=== PATIENT | male | born 1955 | race Asian ===

== ENCOUNTER 2020-05-27 07:26 | Inpatient (IN) | payer MEDICARE, OTHER ==
[~2020-05-27] VITALS: Ht 162.6 cm; Wt 69.9 kg
[~2020-05-27 07:26] MED LIST: ATOR40TA28 PO; CARV3 PO; CEPH-582 PO; CHOL100018 PO; CLIN300C3 PO; CLOP75TA3 PO; GABA-1216 PO; HYDR-4069 PO; INSLAN SQ; INSNOV SQ; METF-960 PO; METO-296 PO
[2020-05-27] MEDS ORDERED: PIPERACILLIN/TAZO 3.375 GM/D5W 50 ML IV ONE (09:00)
[2020-05-27] MEDS ORDERED: VANCOMYCIN HCL 1 GM/D5% WATER 200 ML IV ONE (09:00)
[2020-05-27 09:10] LABS: BASOPHILS % (AUTO) 0.8 % (0.0-2.0); HEMATOCRIT 32.6 % (41-53); LYMPHOCYTES # (AUTO) 1.3 K/uL (1.0-4.8); LYMPHOCYTES % (AUTO) 19.6 % (22.0-44.0); MEAN CORPUSCULAR HEMOGLOBIN 28.9 pg (26.0-34.0); MEAN CORPUSCULAR HGB CONC 33.7 G/dL (31.0-37.0); MEAN CORPUSCULAR VOLUME 86 fL (80-100); MONOCYTES # (AUTO) 0.5 K/uL (0.1-1.0); MONOCYTES % (AUTO) 8.4 % (2.0-9.0); NEUTROPHILS # (AUTO) 4.2 K/uL (1.8-7.7); NEUTROPHILS % (AUTO) 66.2 % (40.0-70.0); PLATELET COUNT (AUTO) 322 K/uL (150-450); RED BLOOD CELL COUNT(AUTO) 3.81 MIL/uL (4.50-5.90); RED CELL DISTRIBUTION WIDTH 14.7 % (11.5-14.5)
[2020-05-27 09:21] LABS: ANION GAP 7 mmol/L (8-16); CARBON DIOXIDE 27 mmol/L (22-29); CHLORIDE 105 mmol/L (98-107); CREATININE 1.12 mg/dL (0.60-1.30); GLOMERULAR FILTR. RATE CALC > 60 mL/min (>60); GLUCOSE,RANDOM 141 mg/dL (70-110); SODIUM SERUM 139 mmol/L (136-145); UREA NITROGEN, BLOOD 15 mg/dL (7-18)
[2020-05-27 09:23] LABS: C-REACTIVE PROTEIN QUANT 0.67 mg/dL (0.00-0.30)
[2020-05-27 10:12] LABS: ERYTHROCYTE SEDIMENTATION RATE 75 MM/HR (0-15)
[2020-05-27] MEDS ORDERED: ACETAMINOPHEN 325 MG TABLET PO PRN ×2 (10:30→15:00)
[2020-05-27] MEDS ORDERED: ONDANSETRON HCL 4 MG/2 ML VIAL IVP PRN (10:30)
[2020-05-27 10:54] LABS: GLUCOSE,POINT OF CARE 136 MG/DL (70-110)
[2020-05-27] MEDS ORDERED: MAGNESIUM HYDROXIDE SUSPENSION 30 ML UDCUP PO PRN (15:00)
[2020-05-27] MEDS ORDERED: HYDROCODONE/ACETAMINOPHEN 10-325 MG TABLET PO PRN (15:00)
[2020-05-27] MEDS ORDERED: BISACODYL 10 MG RECTAL RECTAL SUPPOSITORY PR PRN (15:00)
[2020-05-27] MEDS ORDERED: GADOBUTROL 1 MMOL/ML 10 ML VIAL IVP ONE (15:48)
[2020-05-27] MEDS: CHOLECALCIFEROL (VIT D3) 1,000 UNITS [25 MCG] TABLET PO SCH (15:58)
[2020-05-27] MEDS: GABAPENTIN 100 MG CAPSULE PO SCH ×2 (16:00→21:02)
[2020-05-27] MEDS: METOCLOPRAMIDE HCL 10 MG TABLET PO SCH ×2 (16:00→21:02)
[2020-05-27 17:30] VITALS: BP 148/72
[2020-05-27] MEDS: MetFORMIN HCL 500 MG TABLET PO SCH (17:30)
[2020-05-27 18:05] VITALS: BP 172/87
[2020-05-27] MEDS: HEPARIN SODIUM,PORCINE 5,000 UNITS/ML VIAL SQ SCH ×2 (18:25→23:53)
[2020-05-27] MEDS: HYDROCODONE/ACETAMINOPHEN 5-325 MG TABLET PO PRN (19:59)
[2020-05-27 20:04] VITALS: BP 146/77
[2020-05-27 20:50] VITALS: BP 149/87
[2020-05-27] MEDS: DOCUSATE SODIUM 100 MG CAPSULE PO SCH (21:03)
[2020-05-27] MEDS: CARVEDILOL 3.125 MG TABLET PO SCH (21:03)
[2020-05-27] MEDS: ATORVASTATIN CALCIUM 40 MG TABLET PO SCH (21:03)
[2020-05-27] MEDS ORDERED: DEXTROSE 50%-WATER 25 GM/50 ML SYG IVP PRN (21:45)
[2020-05-27] MEDS ORDERED: GLUCAGON,HUMAN RECOMBINANT 1 MG VIAL IM PRN (21:45)
[2020-05-27] MEDS ORDERED: INSULIN LISPRO 100 UNITS/ML SQ PRN (21:45)
[2020-05-27] MEDS: INSULIN GLARGINE,HUM.REC.ANLOG 100 UNITS/ML SQ SCH (21:59)
[2020-05-27 22:00] LABS: GLUCOMETER DEV NAME(LOC) 6N.1; GLUCOSE,POINT OF CARE 147 MG/DL (70-110)
[2020-05-27] MEDS: INSULIN LISPRO 100 UNITS/ML SQ PRN (22:01)
[2020-05-27] MEDS ORDERED: PNEUMOCOCCAL VACCINE POLYVALENT 0.5 ML VIAL [PPSV23] IM ONE (23:45)
[2020-05-28] MEDS: HYDROCODONE/ACETAMINOPHEN 5-325 MG TABLET PO PRN ×3 (00:21→20:55)
[2020-05-28 00:22] VITALS: BP 109/65
[2020-05-28] MEDS ORDERED: RINGERS SOLUTION,LACTATED 1,000 ML IV ONE (06:30)
[2020-05-28] MEDS ORDERED: LIDOCAINE/PF 1% 30 ML VIAL ONE (06:39)
[2020-05-28] MEDS ORDERED: SODIUM CL IRRIG SOLN BAG 3,000 ML IRRIG ONE (06:39)
[2020-05-28] MEDS ORDERED: BUPIVACAINE HCL/PF 0.25% 30 ML VIAL ONE (06:39)
[2020-05-28] MEDS ORDERED: BACITRACIN 50,000 UNITS/VIAL ONE (06:40)
[2020-05-28] MEDS: HEPARIN SODIUM,PORCINE 5,000 UNITS/ML VIAL SQ SCH ×3 (08:00→23:30)
[2020-05-28] MEDS: OXYGEN THERAPY IH SCH (08:00)
[2020-05-28 10:12] VITALS: BP 140/68
[2020-05-28] MEDS: DOCUSATE SODIUM 100 MG CAPSULE PO SCH ×2 (11:09→20:58)
[2020-05-28] MEDS: PANTOPRAZOLE SODIUM 40 MG DR TABLET PO SCH (11:10)
[2020-05-28] MEDS: CARVEDILOL 3.125 MG TABLET PO SCH ×2 (11:10→20:58)
[2020-05-28] MEDS: GABAPENTIN 100 MG CAPSULE PO SCH ×3 (11:10→20:58)
[2020-05-28] MEDS: METOCLOPRAMIDE HCL 10 MG TABLET PO SCH ×3 (11:10→20:58)
[2020-05-28] MEDS: MetFORMIN HCL 500 MG TABLET PO SCH ×2 (11:10→17:26)
[2020-05-28] MEDS: CHOLECALCIFEROL (VIT D3) 1,000 UNITS [25 MCG] TABLET PO SCH ×2 (11:10→20:59)
[2020-05-28] MEDS: CLOPIDOGREL BISULFATE 75 MG TABLET PO SCH (11:10)
[2020-05-28 11:11] VITALS: BP 134/68
[2020-05-28] MEDS: MORPHINE SULFATE 2 MG/ML SYRINGE IVP PRN ×3 (12:33→23:08)
[2020-05-28] MEDS: INSULIN LISPRO 100 UNITS/ML SQ PRN (12:40)
[2020-05-28 13:45] LABS: GLUCOMETER DEV NAME(LOC) 6N.1; GLUCOSE,POINT OF CARE 96 MG/DL (70-110)
[2020-05-28 13:46] LABS: GLUCOMETER DEV NAME(LOC) 6N.1; GLUCOSE,POINT OF CARE 142 MG/DL (70-110)
[2020-05-28 14:57] VITALS: BP 150/83
[2020-05-28 18:09] LABS: GLUCOMETER DEV NAME(LOC) 6N.1; GLUCOSE,POINT OF CARE 80 MG/DL (70-110)
[2020-05-28 20:07] VITALS: BP 136/80
[2020-05-28] MEDS: ATORVASTATIN CALCIUM 40 MG TABLET PO SCH (21:00)
[2020-05-28] MEDS: INSULIN GLARGINE,HUM.REC.ANLOG 100 UNITS/ML SQ SCH (21:05)
[2020-05-28 21:32] LABS: GLUCOMETER DEV NAME(LOC) 6N.1; GLUCOSE,POINT OF CARE 135 MG/DL (70-110)
[2020-05-28] MEDS: ZOLPIDEM TARTRATE 5 MG TABLET PO PRN (23:09)
[2020-05-28 23:15] VITALS: BP 125/86
[2020-05-29] MEDS: MORPHINE SULFATE 2 MG/ML SYRINGE IVP PRN ×4 (03:15→21:42)
[2020-05-29 03:18] VITALS: BP 132/78
[2020-05-29] MEDS ORDERED: MIDAZOLAM HCL 2 MG/2 ML VIAL IVP ONE (05:14)
[2020-05-29] MEDS ORDERED: PROPOFOL 1% 20 ML VIAL IVP ONE (05:14)
[2020-05-29] MEDS ORDERED: LIDOCAINE/PF 2% 5 ML SYRINGE IVP ONE (05:14)
[2020-05-29] MEDS ORDERED: ONDANSETRON HCL 4 MG/2 ML VIAL IVP ONE (05:14)
[2020-05-29] MEDS ORDERED: FentaNYL CITRATE-PF 100 MCG/2 ML VIAL IVP ONE (05:14)
[2020-05-29 05:20] LABS: GLUCOMETER DEV NAME(LOC) 6N.1; GLUCOSE,POINT OF CARE 108 MG/DL (70-110)
[2020-05-29] MEDS: MetFORMIN HCL 500 MG TABLET PO SCH ×2 (07:51→17:39)
[2020-05-29 07:52] VITALS: BP 143/88
[2020-05-29] MEDS: HYDROCODONE/ACETAMINOPHEN 5-325 MG TABLET PO PRN ×2 (07:52→20:16)
[2020-05-29] MEDS: HEPARIN SODIUM,PORCINE 5,000 UNITS/ML VIAL SQ SCH ×3 (07:52→23:26)
[2020-05-29] MEDS: OXYGEN THERAPY IH SCH (07:54)
[2020-05-29] MEDS: CHOLECALCIFEROL (VIT D3) 1,000 UNITS [25 MCG] TABLET PO SCH ×2 (08:00→20:12)
[2020-05-29] MEDS: CLOPIDOGREL BISULFATE 75 MG TABLET PO SCH (08:00)
[2020-05-29] MEDS: METOCLOPRAMIDE HCL 10 MG TABLET PO SCH ×3 (08:00→20:12)
[2020-05-29] MEDS: DOCUSATE SODIUM 100 MG CAPSULE PO SCH ×2 (08:00→20:11)
[2020-05-29] MEDS: GABAPENTIN 100 MG CAPSULE PO SCH ×3 (08:00→20:12)
[2020-05-29] MEDS: PANTOPRAZOLE SODIUM 40 MG DR TABLET PO SCH (08:00)
[2020-05-29] MEDS: CARVEDILOL 3.125 MG TABLET PO SCH ×2 (08:00→20:12)
[2020-05-29 11:19] VITALS: BP 131/72
[2020-05-29 15:21] VITALS: BP 154/91
[2020-05-29 19:10] LABS: GLUCOMETER DEV NAME(LOC) 6N.1; GLUCOSE,POINT OF CARE 111 MG/DL (70-110)
[2020-05-29 19:10] LABS: GLUCOMETER DEV NAME(LOC) 6N.1; GLUCOSE,POINT OF CARE 117 MG/DL (70-110)
[2020-05-29] MEDS: ATORVASTATIN CALCIUM 40 MG TABLET PO SCH (20:11)
[2020-05-29 20:12] VITALS: BP 136/84
[2020-05-29] MEDS: INSULIN GLARGINE,HUM.REC.ANLOG 100 UNITS/ML SQ SCH (20:13)
[2020-05-29 23:27] VITALS: BP 126/79
[2020-05-30] MEDS: MORPHINE SULFATE 2 MG/ML SYRINGE IVP PRN ×4 (01:36→18:26)
[2020-05-30 04:52] LABS: GLUCOMETER DEV NAME(LOC) 6N.1; GLUCOSE,POINT OF CARE 106 MG/DL (70-110)
[2020-05-30 04:55] VITALS: BP 136/67
[2020-05-30] MEDS: HYDROCODONE/ACETAMINOPHEN 5-325 MG TABLET PO PRN ×3 (05:36→20:33)
[2020-05-30] MEDS: PANTOPRAZOLE SODIUM 40 MG DR TABLET PO SCH (07:50)
[2020-05-30] MEDS: DOCUSATE SODIUM 100 MG CAPSULE PO SCH ×2 (07:50→20:20)
[2020-05-30] MEDS: MetFORMIN HCL 500 MG TABLET PO SCH ×2 (07:50→17:30)
[2020-05-30] MEDS: METOCLOPRAMIDE HCL 10 MG TABLET PO SCH ×3 (07:50→20:22)
[2020-05-30] MEDS: GABAPENTIN 100 MG CAPSULE PO SCH ×3 (07:50→20:19)
[2020-05-30] MEDS: OXYGEN THERAPY IH SCH (07:50)
[2020-05-30] MEDS: CLOPIDOGREL BISULFATE 75 MG TABLET PO SCH (07:51)
[2020-05-30] MEDS: HEPARIN SODIUM,PORCINE 5,000 UNITS/ML VIAL SQ SCH ×3 (07:51→23:13)
[2020-05-30] MEDS: CARVEDILOL 3.125 MG TABLET PO SCH ×2 (07:51→20:20)
[2020-05-30 08:11] VITALS: BP 118/71
[2020-05-30 08:33] LABS: GLUCOMETER DEV NAME(LOC) 6N.1; GLUCOSE,POINT OF CARE 122 MG/DL (70-110)
[2020-05-30] MEDS ORDERED: *CLINICAL-LEVOFLOXACIN IVPB DOSING CLINICAL SCH (10:30)
[2020-05-30] MEDS: CefoTEtan DISOD 1 GM/DEXTROSE 50 ML IV SCH (11:21)
[2020-05-30] MEDS: CHOLECALCIFEROL (VIT D3) 1,000 UNITS [25 MCG] TABLET PO SCH ×2 (11:21→20:20)
[2020-05-30] MEDS: ONDANSETRON HCL 4 MG/2 ML VIAL IVP PRN ×2 (11:21→18:26)
[2020-05-30] MEDS ORDERED: SODIUM CHLORIDE 0.9% 500 ML IV ONE (11:24)
[2020-05-30 11:42] VITALS: BP 133/75
[2020-05-30] MEDS: LEVOFLOXACIN 750 MG/D5% WATER 150 ML IV SCH (12:14)
[2020-05-30 13:51] LABS: GLUCOMETER DEV NAME(LOC) 6N.1; GLUCOSE,POINT OF CARE 113 MG/DL (70-110)
[2020-05-30 15:37] VITALS: BP 139/87
[2020-05-30 19:30] VITALS: BP 121/76
[2020-05-30 19:44] LABS: GLUCOMETER DEV NAME(LOC) 6N.1; GLUCOSE,POINT OF CARE 115 MG/DL (70-110)
[2020-05-30] MEDS: ATORVASTATIN CALCIUM 40 MG TABLET PO SCH (20:19)
[2020-05-30] MEDS: INSULIN GLARGINE,HUM.REC.ANLOG 100 UNITS/ML SQ SCH (20:29)
[2020-05-30 20:50] LABS: GLUCOMETER DEV NAME(LOC) 6N.1; GLUCOSE,POINT OF CARE 124 MG/DL (70-110)
[2020-05-30 23:13] VITALS: BP 112/65
[2020-05-31] MEDS: MORPHINE SULFATE 2 MG/ML SYRINGE IVP PRN ×2 (02:18→22:49)
[2020-05-31 04:38] VITALS: BP 123/69
[2020-05-31 06:16] LABS: GLUCOMETER DEV NAME(LOC) 6N.1; GLUCOSE,POINT OF CARE 87 MG/DL (70-110)
[2020-05-31 07:32] VITALS: BP 132/74
[2020-05-31] MEDS: CARVEDILOL 3.125 MG TABLET PO SCH ×2 (08:09→20:02)
[2020-05-31] MEDS: HEPARIN SODIUM,PORCINE 5,000 UNITS/ML VIAL SQ SCH ×3 (08:09→23:03)
[2020-05-31] MEDS: GABAPENTIN 100 MG CAPSULE PO SCH ×3 (08:10→20:01)
[2020-05-31] MEDS: CHOLECALCIFEROL (VIT D3) 1,000 UNITS [25 MCG] TABLET PO SCH ×2 (08:10→20:01)
[2020-05-31] MEDS: METOCLOPRAMIDE HCL 10 MG TABLET PO SCH ×3 (08:11→20:01)
[2020-05-31] MEDS: CLOPIDOGREL BISULFATE 75 MG TABLET PO SCH (08:11)
[2020-05-31] MEDS: MetFORMIN HCL 500 MG TABLET PO SCH ×2 (08:28→17:23)
[2020-05-31] MEDS: DOCUSATE SODIUM 100 MG CAPSULE PO SCH ×2 (08:28→20:01)
[2020-05-31] MEDS: PANTOPRAZOLE SODIUM 40 MG DR TABLET PO SCH (08:29)
[2020-05-31] MEDS: CefoTEtan DISOD 1 GM/DEXTROSE 50 ML IV SCH (11:24)
[2020-05-31 11:40] VITALS: BP 133/80
[2020-05-31] MEDS: LEVOFLOXACIN 750 MG/D5% WATER 150 ML IV SCH (11:58)
[2020-05-31 13:47] LABS: GLUCOMETER DEV NAME(LOC) 6N.1; GLUCOSE,POINT OF CARE 107 MG/DL (70-110)
[2020-05-31 15:56] VITALS: BP 131/77
[2020-05-31] MEDS ORDERED: SODIUM CHLORIDE 0.9% 500 ML IV ONE (17:22)
[2020-05-31 20:00] VITALS: BP 144/67
[2020-05-31] MEDS: OXYGEN THERAPY IH SCH (20:00)
[2020-05-31] MEDS: HYDROCODONE/ACETAMINOPHEN 5-325 MG TABLET PO PRN (20:01)
[2020-05-31] MEDS: ATORVASTATIN CALCIUM 40 MG TABLET PO SCH (20:02)
[2020-05-31] MEDS: INSULIN GLARGINE,HUM.REC.ANLOG 100 UNITS/ML SQ SCH (20:07)
[2020-05-31 21:56] LABS: GLUCOMETER DEV NAME(LOC) 6N.1; GLUCOSE,POINT OF CARE 107 MG/DL (70-110)
[2020-05-31 21:56] LABS: GLUCOMETER DEV NAME(LOC) 6N.1; GLUCOSE,POINT OF CARE 90 MG/DL (70-110)
[2020-05-31 23:05] VITALS: BP 126/74
[2020-06-01 03:56] VITALS: BP 113/68
[2020-06-01] MEDS: MORPHINE SULFATE 2 MG/ML SYRINGE IVP PRN ×2 (03:59→16:48)
[2020-06-01 06:18] LABS: GLUCOMETER DEV NAME(LOC) 6N.1; GLUCOSE,POINT OF CARE 118 MG/DL (70-110)
[2020-06-01 07:45] VITALS: BP 132/74
[2020-06-01] MEDS: HYDROCODONE/ACETAMINOPHEN 5-325 MG TABLET PO PRN ×4 (07:59→23:45)
[2020-06-01] MEDS: DOCUSATE SODIUM 100 MG CAPSULE PO SCH ×2 (07:59→20:07)
[2020-06-01] MEDS: OXYGEN THERAPY IH SCH ×2 (08:00→20:00)
[2020-06-01] MEDS: GABAPENTIN 100 MG CAPSULE PO SCH ×3 (08:00→20:07)
[2020-06-01] MEDS: METOCLOPRAMIDE HCL 10 MG TABLET PO SCH ×3 (08:00→20:07)
[2020-06-01] MEDS: CHOLECALCIFEROL (VIT D3) 1,000 UNITS [25 MCG] TABLET PO SCH ×2 (08:00→20:07)
[2020-06-01] MEDS: CARVEDILOL 3.125 MG TABLET PO SCH ×2 (08:01→20:07)
[2020-06-01] MEDS: MetFORMIN HCL 500 MG TABLET PO SCH ×2 (08:01→18:14)
[2020-06-01] MEDS: CLOPIDOGREL BISULFATE 75 MG TABLET PO SCH (08:01)
[2020-06-01] MEDS: PANTOPRAZOLE SODIUM 40 MG DR TABLET PO SCH (08:01)
[2020-06-01] MEDS: HEPARIN SODIUM,PORCINE 5,000 UNITS/ML VIAL SQ SCH ×3 (08:02→23:00)
[2020-06-01] MEDS: POVIDONE-IODINE 10% 120 ML SOLUTION TP SCH (09:00)
[2020-06-01] MEDS: ONDANSETRON HCL 4 MG/2 ML VIAL IVP PRN ×2 (09:11→18:32)
[2020-06-01 11:34] VITALS: BP 135/80
[2020-06-01] MEDS: CefoTEtan DISOD 1 GM/DEXTROSE 50 ML IV SCH ×2 (13:35→22:22)
[2020-06-01] MEDS: LEVOFLOXACIN 750 MG/D5% WATER 150 ML IV SCH (14:22)
[2020-06-01 15:06] VITALS: BP 124/70
[2020-06-01 18:12] LABS: GLUCOMETER DEV NAME(LOC) 6N.1; GLUCOSE,POINT OF CARE 107 MG/DL (70-110)
[2020-06-01 18:12] LABS: GLUCOMETER DEV NAME(LOC) 6N.1; GLUCOSE,POINT OF CARE 110 MG/DL (70-110)
[2020-06-01 19:28] VITALS: BP 142/70
[2020-06-01] MEDS: ATORVASTATIN CALCIUM 40 MG TABLET PO SCH (20:07)
[2020-06-01] MEDS: ZOLPIDEM TARTRATE 5 MG TABLET PO PRN (20:07)
[2020-06-01] MEDS: INSULIN GLARGINE,HUM.REC.ANLOG 100 UNITS/ML SQ SCH (20:38)
[2020-06-01 21:07] LABS: GLUCOMETER DEV NAME(LOC) 6N.1; GLUCOSE,POINT OF CARE 127 MG/DL (70-110)
[2020-06-01 23:16] VITALS: BP 134/72
[2020-06-02 04:21] VITALS: BP 113/68
[2020-06-02 07:54] VITALS: BP 115/69
[2020-06-02] MEDS: OXYGEN THERAPY IH SCH (08:00)
[2020-06-02] MEDS: CLOPIDOGREL BISULFATE 75 MG TABLET PO SCH (08:09)
[2020-06-02] MEDS: MetFORMIN HCL 500 MG TABLET PO SCH ×2 (08:09→16:34)
[2020-06-02] MEDS: HEPARIN SODIUM,PORCINE 5,000 UNITS/ML VIAL SQ SCH ×2 (08:09→16:35)
[2020-06-02] MEDS: GABAPENTIN 100 MG CAPSULE PO SCH ×2 (08:09→16:34)
[2020-06-02] MEDS: PANTOPRAZOLE SODIUM 40 MG DR TABLET PO SCH (08:09)
[2020-06-02] MEDS: CHOLECALCIFEROL (VIT D3) 1,000 UNITS [25 MCG] TABLET PO SCH (08:09)
[2020-06-02] MEDS: DOCUSATE SODIUM 100 MG CAPSULE PO SCH (08:09)
[2020-06-02] MEDS: CARVEDILOL 3.125 MG TABLET PO SCH (08:09)
[2020-06-02] MEDS: METOCLOPRAMIDE HCL 10 MG TABLET PO SCH ×2 (08:09→16:34)
[2020-06-02] MEDS: POVIDONE-IODINE 10% 120 ML SOLUTION TP SCH (08:10)
[2020-06-02] MEDS: CefoTEtan DISOD 1 GM/DEXTROSE 50 ML IV SCH (10:47)
[2020-06-02 10:52] LABS: GLUCOMETER DEV NAME(LOC) 6N.1; GLUCOSE,POINT OF CARE 103 MG/DL (70-110)
[2020-06-02] MEDS: HYDROCODONE/ACETAMINOPHEN 5-325 MG TABLET PO PRN ×2 (10:59→18:46)
[2020-06-02] MEDS: LEVOFLOXACIN 750 MG/D5% WATER 150 ML IV SCH (11:44)
[2020-06-02 12:02] VITALS: BP 154/87
[2020-06-02] MEDS ORDERED: CEFO1I IV (12:20)
[2020-06-02] MEDS ORDERED: LEVO750T68 IV (12:23)
[2020-06-02] MEDS ORDERED: PANT-31 PO (12:24)
[2020-06-02] MEDS ORDERED: POVI1MED TP (12:26)
[2020-06-02] MEDS ORDERED: ACET-3207 PO (12:27)
[2020-06-02] MEDS ORDERED: BISA-151 PO (12:28)
[2020-06-02] MEDS ORDERED: DEXTROSE IVP (12:33)
[2020-06-02] MEDS ORDERED: HYDR-4061 PO (12:34)
[2020-06-02] MEDS ORDERED: MOM30 PO (12:37)
[2020-06-02] MEDS ORDERED: ZOLP-280 PO (12:38)
[2020-06-02 15:26] VITALS: BP 133/80
[2020-06-02 16:25] LABS: GLUCOMETER DEV NAME(LOC) 6N.1; GLUCOSE,POINT OF CARE 121 MG/DL (70-110)
[2020-06-02 19:10] LABS: GLUCOMETER DEV NAME(LOC) 6N.1; GLUCOSE,POINT OF CARE 107 MG/DL (70-110)
[2020-06-03] MEDS ORDERED: CHOL100018 PO (10:08)
== END 2020-06-02 19:07 | DRG 617 ==
LOC: EMS 07:40 → 4E 14:50
PROVIDERS: ADMIT Internal Medicine; ATTEND Internal Medicine
PROC: 0QBP0ZZ Excision of Left Metatarsal, Open Approach (ICD-10-PCS; 2020-05-28)
PROC: 0QBR0ZX Excision of Left Toe Phalanx, Open Approach, Diagnostic (ICD-10-PCS; 2020-05-28)
PROC: 0Y6S0Z0 Detachment at Left 2nd Toe, Complete, Open Approach (ICD-10-PCS; principal; 2020-05-28 07:30)
PROC: 3E0234Z Introduction of Serum, Toxoid and Vaccine into Muscle, Percutaneous Approach (ICD-10-PCS; 2020-06-02)
DX: E11.69 Type 2 diabetes mellitus with other specified complication (principal); M86.172 Other acute osteomyelitis, left ankle and foot; M87.9 Osteonecrosis, unspecified; I10 Essential (primary) hypertension; E11.51 Type 2 diabetes mellitus with diabetic peripheral angiopathy without gangrene; E55.9 Vitamin D deficiency, unspecified; E78.5 Hyperlipidemia, unspecified; Z89.511 Acquired absence of right leg below knee; Z03.818 Encounter for observation for suspected exposure to other biological agents ruled out; Z23 Encounter for immunization; Z89.412 Acquired absence of left great toe
CPT/HCPCS: 73720; 85651; 86140; 87070; 87205; 88305; 88307; 88311; 90732; 93005; 97116; 97162; 97166; 97530; 97535; A9585; G0378; J1644; J1815; J1956; J2250; J2270; J2405; J2704; J3010; J3370; J3490; J7040; J7120

== ENCOUNTER 2020-06-21 21:59 | Emergency (ER) | payer MEDICARE, OTHER ==
[~2020-06-21] VITALS: Ht 162.6 cm; Wt 68.2 kg
[~2020-06-21 21:59] MED LIST changes: -CEPH-582 PO; -CLIN300C3 PO; +CLOP-31 PO; -CLOP75TA3 PO; -HYDR-4069 PO; +MAGN200T5 PO; +MERO1PIG IVPB; +MULT-1119 PO; +PANT-31 PO; +POVI1MED TP
[2020-06-21 22:51] VITALS: BP 137/73
== END 2020-06-21 22:51 | disposition home or self-care (01) ==
LOC: EMS 21:59
DX: Z45.2 Encounter for adjustment and management of vascular access device (principal); E11.9 Type 2 diabetes mellitus without complications; I10 Essential (primary) hypertension; Z79.4 Long term (current) use of insulin; Z79.01 Long term (current) use of anticoagulants; Z79.84 Long term (current) use of oral hypoglycemic drugs; Z79.899 Other long term (current) drug therapy

== ENCOUNTER 2021-02-11 13:12 | Emergency (ER) | payer MEDICARE, OTHER ==
[~2021-02-11] VITALS: Ht 157.5 cm; Wt 68.2 kg
[~2021-02-11 13:12] MED LIST changes: -CHOL100018 PO; +CHOL100044 PO; -CLOP-31 PO; +CLOP75TA60 PO
[2021-02-11] MEDS ORDERED: MULT400T15 PO (13:36)
[2021-02-11] MEDS ORDERED: EMPA25TA PO (13:36)
[2021-02-11] MEDS ORDERED: ATOR-2 PO (13:36)
[2021-02-11] MEDS ORDERED: LEVO-72 PO (13:36)
[2021-02-11] MEDS ORDERED: METF-911 PO (13:36)
[2021-02-11] MEDS ORDERED: LISI10TA24 PO (13:36)
[2021-02-11] MEDS ORDERED: METO10TA3 PO (13:36)
[2021-02-11] MEDS ORDERED: GABA-1181 PO (13:36)
[2021-02-11] MEDS ORDERED: ASPI-1444 PO (13:36)
[2021-02-11] MEDS ORDERED: OMEG-112 PO (13:36)
[2021-02-11] MEDS ORDERED: FENO160T11 PO (13:36)
[2021-02-11 15:10] LABS: BASOPHILS % (AUTO) 0.8 % (0.0-2.0); HEMATOCRIT 42.2 % (41-53); LYMPHOCYTES # (AUTO) 1.6 K/uL (1.0-4.8); LYMPHOCYTES % (AUTO) 31.5 % (22.0-44.0); MEAN CORPUSCULAR HEMOGLOBIN 29.6 pg (26.0-34.0); MEAN CORPUSCULAR HGB CONC 33.1 G/dL (31.0-37.0); MEAN CORPUSCULAR VOLUME 90 fL (80-100); MONOCYTES # (AUTO) 0.3 K/uL (0.1-1.0); MONOCYTES % (AUTO) 6.9 % (2.0-9.0); NEUTROPHILS % (AUTO) 59.8 % (40.0-70.0); PLATELET COUNT (AUTO) 221 K/uL (150-450); RED BLOOD CELL COUNT(AUTO) 4.71 MIL/uL (4.50-5.90)
[2021-02-11 15:40] LABS: ALBUMIN 3.6 g/dL (3.4-5.0); BILIRUBIN,TOTAL 0.6 mg/dL (0.1-1.0); CALCIUM, TOTAL 9.3 mg/dL (8.8-10.5); CREATININE 2.13 mg/dL (0.60-1.30); POTASSIUM 4.8 mmol/L (3.5-5.1); TOTAL PROTEIN, SERUM 7.6 g/dL (6.4-8.2)
[2021-02-11] MEDS ORDERED: SODIUM CHLORIDE 0.9% 1,000 ML IV ONE (16:00)
[2021-02-11] MEDS ORDERED: INSULIN REGULAR, HUMAN 100 UNITS/ML IVP ONE (16:00)
[2021-02-11 17:15] VITALS: BP 120/62
[2021-02-11 18:02] LABS: GLUCOSE,POINT OF CARE 291 MG/DL (70-110)
== END 2021-02-11 18:00 | disposition home or self-care (01) ==
LOC: EMS 13:19
DX: E11.65 Type 2 diabetes mellitus with hyperglycemia (principal); E78.00 Pure hypercholesterolemia, unspecified; I10 Essential (primary) hypertension; Z79.4 Long term (current) use of insulin; Z79.899 Other long term (current) drug therapy
CPT/HCPCS: 36415; 80053; 82962; 84484; 85025; 93005; 96361; 96374; 99285; J1815; J7030; 82948

== ENCOUNTER 2021-11-10 23:54 | Emergency (ER) | payer MEDICARE, MEDICAID ==
[~2021-11-10] VITALS: Ht 162.6 cm; Wt 75.0 kg
[~2021-11-10 23:54] MED LIST changes: +ASPI-1444 PO; +ATOR-2 PO; -ATOR40TA28 PO; +CHOL-35 PO; -CHOL100044 PO; +EMPA25TA PO; +FENO160T11 PO; +GABA-1181 PO; -GABA-1216 PO; -INSNOV SQ; +LEVO-72 PO; +LISI10TA24 PO; -MAGN200T5 PO; -MERO1PIG IVPB; +METF-911 PO; -METF-960 PO; -METO-296 PO; +METO10TA3 PO; -MULT-1119 PO; +MULT400T15 PO; +OMEG-112 PO; -PANT-31 PO; -POVI1MED TP
[2021-11-11 00:10] VITALS: BP 150/80
[2021-11-11 01:34] LABS: COVID AG,FIA SOURCE NASOPHARYNGEAL
[2021-11-11 01:57] LABS: INFLUENZA TYPE A NEGATIVE FOR TYPE A (NEGATIVE); INFLUENZA TYPE B NEGATIVE FOR TYPE B (NEGATIVE)
== END 2021-11-11 01:39 | disposition home or self-care (01) ==
LOC: EMS 23:55
DX: U07.1 COVID-19 (principal); M79.10 Myalgia, unspecified site; E11.9 Type 2 diabetes mellitus without complications; E78.00 Pure hypercholesterolemia, unspecified; I10 Essential (primary) hypertension; Z79.4 Long term (current) use of insulin
CPT/HCPCS: 87426; 87804; 99283; U0003

== ENCOUNTER 2021-11-14 02:55 | Inpatient (IN) | payer MEDICARE, MEDICAID ==
[~2021-11-14] VITALS: Ht 162.6 cm; Wt 69.8 kg
[2021-11-14 03:16] LABS: GLUCOSE,POINT OF CARE 237 MG/DL (70-110)
[2021-11-14] MEDS ORDERED: ACETAMINOPHEN 325 MG TABLET PO ONE (03:30)
[2021-11-14] MEDS ORDERED: IBUPROFEN 600 MG TABLET PO ONE (03:30)
[2021-11-14 03:43] LABS: BASOPHILS % (AUTO) 0.7 % (0.0-2.0); EOSINOPHILS % (AUTO) 0.5 % (1.0-6.0); HEMATOCRIT 43.2 % (41-53); HEMOGLOBIN 14.9 g/dL (13.5-17.5); LYMPHOCYTES # (AUTO) 0.7 K/uL (1.0-4.8); LYMPHOCYTES % (AUTO) 23.4 % (22.0-44.0); MEAN CORPUSCULAR HEMOGLOBIN 29.9 pg (26.0-34.0); MEAN CORPUSCULAR HGB CONC 34.4 G/dL (31.0-37.0); MEAN CORPUSCULAR VOLUME 87 fL (80-100); MONOCYTES # (AUTO) 0.5 K/uL (0.1-1.0); MONOCYTES % (AUTO) 14.8 % (2.0-9.0); NEUTROPHILS # (AUTO) 1.9 K/uL (1.8-7.7); NEUTROPHILS % (AUTO) 60.6 % (40.0-70.0); PLATELET COUNT (AUTO) 189 K/uL (150-450); RED BLOOD CELL COUNT(AUTO) 4.98 MIL/uL (4.50-5.90); RED CELL DISTRIBUTION WIDTH 13.8 % (11.5-14.5)
[2021-11-14 04:08] LABS: CALCIUM, TOTAL 8.6 mg/dL (8.8-10.5); CREATININE 1.74 mg/dL (0.60-1.30); POTASSIUM 3.8 mmol/L (3.5-5.1)
[2021-11-14 04:14] LABS: ALBUMIN 3.6 g/dL (3.4-5.0); BILIRUBIN,TOTAL 0.6 mg/dL (0.1-1.0); TOTAL PROTEIN, SERUM 8.1 g/dL (6.4-8.2)
[2021-11-14] MEDS ORDERED: 0.9% SODIUM CHLORIDE 10 ML SYRINGE IVP PRN (05:00)
[2021-11-14] MEDS ORDERED: ONDANSETRON HCL 4 MG/2 ML VIAL IVP PRN (05:00)
[2021-11-14] MEDS ORDERED: ASPIRIN 325 MG TABLET PO ONE (05:00)
[2021-11-14] MEDS ORDERED: ACETAMINOPHEN 325 MG TABLET PO PRN (05:00)
[2021-11-14 06:58] LABS: COVID AG,FIA SOURCE NASOPHARYNGEAL
[2021-11-14] MEDS ORDERED: OxyCODONE HCL/ACETAMINOPHEN 5-325 MG TABLET PO PRN (11:15)
[2021-11-14] MEDS ORDERED: BISACODYL 10 MG RECTAL RECTAL SUPPOSITORY PR PRN (11:15)
[2021-11-14] MEDS ORDERED: DEXTROSE 50%-WATER 25 GM/50 ML SYRINGE IVP PRN (11:15)
[2021-11-14] MEDS ORDERED: SODIUM CHLORIDE 0.9% 1,000 ML IV ONE (11:15)
[2021-11-14] MEDS: ATORVASTATIN CALCIUM 20 MG TABLET PO SCH (12:00)
[2021-11-14] MEDS: CARVEDILOL 6.25 MG TABLET PO SCH ×2 (12:00→20:06)
[2021-11-14] MEDS: CLOPIDOGREL BISULFATE 75 MG TABLET PO SCH (12:00)
[2021-11-14] MEDS: ACETAMINOPHEN 325 MG TABLET PO PRN ×2 (14:03→17:47)
[2021-11-14] MEDS: ONDANSETRON HCL 4 MG/2 ML VIAL IVP PRN (14:10)
[2021-11-14 14:26] LABS: GLUCOSE,POINT OF CARE 165 MG/DL (70-110)
[2021-11-14 14:53] VITALS: BP 152/88
[2021-11-14] MEDS: INSULIN LISPRO 100 UNITS/ML SQ PRN ×2 (17:47→20:30)
[2021-11-14] MEDS ORDERED: INFLUENZA VIRUS VACCINE QVS 2021-22 (6MO+)/PF 60 MCG/0.5 ML SYRINGE IM. ONE (18:15)
[2021-11-14] MEDS: DOCUSATE SODIUM 100 MG CAPSULE PO SCH (20:06)
[2021-11-14] MEDS: HEPARIN SODIUM,PORCINE 5,000 UNITS/ML VIAL SQ SCH (20:16)
[2021-11-14 20:27] VITALS: BP 116/71
[2021-11-14] MEDS: INSULIN GLARGINE,HUM.REC.ANLOG 100 UNITS/ML SQ SCH (20:31)
[2021-11-14] MEDS ORDERED: INSULIN GLARGINE,HUM.REC.ANLOG 100 UNITS/ML SQ SCH (21:00)
[2021-11-15] VITALS (8 sets, daily range): BP systolic 111–164; BP diastolic 61–86
[2021-11-15 00:01] LABS: GLUCOMETER DEV NAME(LOC) 5N.3; GLUCOSE,POINT OF CARE 187 MG/DL (70-110)
[2021-11-15 00:02] LABS: GLUCOMETER DEV NAME(LOC) 5N.3; GLUCOSE,POINT OF CARE 184 MG/DL (70-110)
[2021-11-15] MEDS: ACETAMINOPHEN 325 MG TABLET PO PRN ×2 (00:33→18:19)
[2021-11-15] MEDS: ONDANSETRON HCL 4 MG/2 ML VIAL IVP PRN (05:50)
[2021-11-15] MEDS: INSULIN LISPRO 100 UNITS/ML SQ PRN ×4 (06:43→21:51)
[2021-11-15 08:11] LABS: BASOPHILS % (AUTO) 0.4 % (0.0-2.0); EOSINOPHILS % (AUTO) 0.1 % (1.0-6.0); HEMATOCRIT 41.8 % (41-53); HEMOGLOBIN 14.3 g/dL (13.5-17.5); LYMPHOCYTES # (AUTO) 0.5 K/uL (1.0-4.8); LYMPHOCYTES % (AUTO) 27.4 % (22.0-44.0); MEAN CORPUSCULAR HEMOGLOBIN 29.9 pg (26.0-34.0); MEAN CORPUSCULAR HGB CONC 34.2 G/dL (31.0-37.0); MEAN CORPUSCULAR VOLUME 88 fL (80-100); MONOCYTES # (AUTO) 0.3 K/uL (0.1-1.0); MONOCYTES % (AUTO) 16.8 % (2.0-9.0); NEUTROPHILS % (AUTO) 55.3 % (40.0-70.0); PLATELET COUNT (AUTO) 145 K/uL (150-450); RED BLOOD CELL COUNT(AUTO) 4.78 MIL/uL (4.50-5.90); RED CELL DISTRIBUTION WIDTH 13.8 % (11.5-14.5)
[2021-11-15 08:37] LABS: APPEARANCE,URINE CLEAR (CLEAR); BILIRUBIN,URINE NEGATIVE (NEGATIVE); GLUCOSE, URINE (UA) >=1000 mg/dL (NEGATIVE); KETONES,URINE 15 mg/dL (NEGATIVE); LEUKOCYTE ESTERASE ,URINE NEGATIVE (NEGATIVE); NITRATE,URINE NEGATIVE (NEGATIVE); OCCULT BLOOD,URINE NEGATIVE (NEGATIVE); PROTEIN,URINE SEE CONFIRM (NEGATIVE)
[2021-11-15 08:40] LABS: ALBUMIN 3.2 g/dL (3.4-5.0); BILIRUBIN,TOTAL 0.7 mg/dL (0.1-1.0); CALCIUM, TOTAL 8.6 mg/dL (8.8-10.5); CREATININE 1.53 mg/dL (0.60-1.30); POTASSIUM 3.9 mmol/L (3.5-5.1); TOTAL PROTEIN, SERUM 7.6 g/dL (6.4-8.2)
[2021-11-15 08:41] LABS: BACTERIA,URINE None Seen /HPF (None Seen); RBC,URINE None Seen /HPF (0-2); SULFOSALICYLIC ACID,URINE 1+ (Negative); WBC,URINE None Seen /HPF (0-5)
[2021-11-15] MEDS: CLOPIDOGREL BISULFATE 75 MG TABLET PO SCH (08:44)
[2021-11-15] MEDS: HEPARIN SODIUM,PORCINE 5,000 UNITS/ML VIAL SQ SCH ×2 (08:45→20:52)
[2021-11-15] MEDS: DOCUSATE SODIUM 100 MG CAPSULE PO SCH ×2 (08:45→20:52)
[2021-11-15] MEDS: FAMOTIDINE 20 MG TABLET PO SCH (08:45)
[2021-11-15] MEDS: ATORVASTATIN CALCIUM 20 MG TABLET PO SCH (08:45)
[2021-11-15] MEDS: CARVEDILOL 6.25 MG TABLET PO SCH ×2 (08:45→20:52)
[2021-11-15] MEDS: BENZOCAINE/MENTHOL LOZENGE PO PRN (17:12)
[2021-11-15] MEDS: BENZONATATE 100 MG CAPSULE PO SCH (17:12)
[2021-11-15 17:22] LABS: GLUCOMETER DEV NAME(LOC) 5N.1C; GLUCOSE,POINT OF CARE 226 MG/DL (70-110)
[2021-11-15] MEDS: INSULIN GLARGINE,HUM.REC.ANLOG 100 UNITS/ML SQ SCH (21:59)
[2021-11-16] MEDS: BENZONATATE 100 MG CAPSULE PO SCH ×4 (00:35→23:41)
[2021-11-16 03:22] VITALS: BP 156/87
[2021-11-16] MEDS: INSULIN LISPRO 100 UNITS/ML SQ PRN ×3 (05:47→20:49)
[2021-11-16 07:40] VITALS: BP 159/84
[2021-11-16] MEDS: DOCUSATE SODIUM 100 MG CAPSULE PO SCH ×2 (08:14→20:47)
[2021-11-16] MEDS: CLOPIDOGREL BISULFATE 75 MG TABLET PO SCH (08:14)
[2021-11-16] MEDS: ATORVASTATIN CALCIUM 20 MG TABLET PO SCH (08:14)
[2021-11-16] MEDS: FAMOTIDINE 20 MG TABLET PO SCH (08:14)
[2021-11-16] MEDS: HEPARIN SODIUM,PORCINE 5,000 UNITS/ML VIAL SQ SCH ×2 (08:15→20:48)
[2021-11-16] MEDS: BENZOCAINE/MENTHOL LOZENGE PO PRN (08:15)
[2021-11-16] MEDS: CARVEDILOL 6.25 MG TABLET PO SCH ×2 (08:16→20:47)
[2021-11-16] MEDS: ACETAMINOPHEN 325 MG TABLET PO PRN ×2 (11:33→23:41)
[2021-11-16 11:46] LABS: GLUCOMETER DEV NAME(LOC) 5N.3; GLUCOSE,POINT OF CARE 136 MG/DL (70-110)
[2021-11-16 11:46] LABS: GLUCOMETER DEV NAME(LOC) 5N.3; GLUCOSE,POINT OF CARE 154 MG/DL (70-110)
[2021-11-16 11:46] LABS: GLUCOMETER DEV NAME(LOC) 5N.3; GLUCOSE,POINT OF CARE 157 MG/DL (70-110)
[2021-11-16 11:47] LABS: GLUCOMETER DEV NAME(LOC) 5N.3; GLUCOSE,POINT OF CARE 142 MG/DL (70-110)
[2021-11-16 11:48] VITALS: BP 161/87
[2021-11-16 15:48] VITALS: BP 157/84
[2021-11-16 16:07] LABS: GLUCOMETER DEV NAME(LOC) 5N.1C; GLUCOSE,POINT OF CARE 109 MG/DL (70-110)
[2021-11-16 19:43] VITALS: BP 158/85
[2021-11-16] MEDS ORDERED: GuaiFENesin/D-METHORPHAN [SUGAR-FREE] 200-20MG/10 ML SYRUP UDCUP PO PRN (19:45)
[2021-11-16] MEDS: INSULIN GLARGINE,HUM.REC.ANLOG 100 UNITS/ML SQ SCH (20:49)
[2021-11-16 23:32] LABS: GLUCOMETER DEV NAME(LOC) 5S.2B; GLUCOSE,POINT OF CARE 160 MG/DL (70-110)
[2021-11-16 23:32] LABS: GLUCOMETER DEV NAME(LOC) 5S.1; GLUCOSE,POINT OF CARE 152 MG/DL (70-110)
[2021-11-16 23:33] VITALS: BP 158/84
[2021-11-17] MEDS: BENZOCAINE/MENTHOL LOZENGE PO PRN (03:12)
[2021-11-17 03:40] VITALS: BP 144/95
[2021-11-17 06:55] LABS: BASOPHILS % (AUTO) 0.3 % (0.0-2.0); EOSINOPHILS % (AUTO) 0 % (1.0-6.0); HEMATOCRIT 42.6 % (41-53); HEMOGLOBIN 14.9 g/dL (13.5-17.5); LYMPHOCYTES # (AUTO) 0.5 K/uL (1.0-4.8); LYMPHOCYTES % (AUTO) 15.6 % (22.0-44.0); MEAN CORPUSCULAR HEMOGLOBIN 29.9 pg (26.0-34.0); MEAN CORPUSCULAR HGB CONC 34.9 G/dL (31.0-37.0); MEAN CORPUSCULAR VOLUME 86 fL (80-100); MONOCYTES # (AUTO) 0.4 K/uL (0.1-1.0); MONOCYTES % (AUTO) 11.6 % (2.0-9.0); NEUTROPHILS # (AUTO) 2.3 K/uL (1.8-7.7); NEUTROPHILS % (AUTO) 72.5 % (40.0-70.0); PLATELET COUNT (AUTO) 134 K/uL (150-450); RED BLOOD CELL COUNT(AUTO) 4.98 MIL/uL (4.50-5.90); RED CELL DISTRIBUTION WIDTH 13.6 % (11.5-14.5)
[2021-11-17 07:07] LABS: CALCIUM, TOTAL 8.6 mg/dL (8.8-10.5); CREATININE 1.24 mg/dL (0.60-1.30); POTASSIUM 3.9 mmol/L (3.5-5.1)
[2021-11-17 07:58] VITALS: BP 144/74
[2021-11-17] MEDS: CLOPIDOGREL BISULFATE 75 MG TABLET PO SCH (09:19)
[2021-11-17] MEDS: DOCUSATE SODIUM 100 MG CAPSULE PO SCH (09:19)
[2021-11-17] MEDS: FAMOTIDINE 20 MG TABLET PO SCH (09:20)
[2021-11-17] MEDS: CARVEDILOL 6.25 MG TABLET PO SCH (09:20)
[2021-11-17] MEDS: ATORVASTATIN CALCIUM 20 MG TABLET PO SCH (09:20)
[2021-11-17] MEDS: BENZONATATE 100 MG CAPSULE PO SCH (09:20)
[2021-11-17] MEDS: HEPARIN SODIUM,PORCINE 5,000 UNITS/ML VIAL SQ SCH (09:20)
[2021-11-17] MEDS ORDERED: ATOR40TA28 PO (11:26)
[2021-11-17] MEDS ORDERED: LISI-893 PO (11:26)
[2021-11-17] MEDS ORDERED: OMEG-50 PO (11:26)
[2021-11-17] MEDS ORDERED: METO-296 PO (11:26)
[2021-11-17 11:35] VITALS: BP 160/86
[2021-11-17] MEDS: INSULIN LISPRO 100 UNITS/ML SQ PRN (11:55)
[2021-11-17 12:40] VITALS: BP 152/81
[2021-11-17 12:47] LABS: GLUCOMETER DEV NAME(LOC) 5S.1; GLUCOSE,POINT OF CARE 148 MG/DL (70-110)
[2021-11-17] MEDS ORDERED: INSLAN SQ (12:53)
[2021-11-18 08:26] LABS: GLUCOMETER DEV NAME(LOC) 5S.2B; GLUCOSE,POINT OF CARE 237 MG/DL (70-110)
== END 2021-11-17 14:17 | disposition home or self-care (01) | DRG 871 ==
LOC: EMS 02:59 → 5N 11:08
PROVIDERS: ADMIT Internal Medicine; ATTEND Internal Medicine
DX: A41.9 Sepsis, unspecified organism (principal); U07.1 COVID-19; N17.9 Acute kidney failure, unspecified; I24.8 Other forms of acute ischemic heart disease; E11.22 Type 2 diabetes mellitus with diabetic chronic kidney disease; I25.10 Atherosclerotic heart disease of native coronary artery without angina pectoris; N18.30 Chronic kidney disease, stage 3 unspecified; E78.5 Hyperlipidemia, unspecified; E11.65 Type 2 diabetes mellitus with hyperglycemia; I12.9 Hypertensive chronic kidney disease with stage 1 through stage 4 chronic kidney disease, or unspecified chronic kidney disease; E78.00 Pure hypercholesterolemia, unspecified; E11.51 Type 2 diabetes mellitus with diabetic peripheral angiopathy without gangrene; E11.40 Type 2 diabetes mellitus with diabetic neuropathy, unspecified; Z79.82 Long term (current) use of aspirin; Z79.4 Long term (current) use of insulin; Z95.1 Presence of aortocoronary bypass graft; Z89.519 Acquired absence of unspecified leg below knee; Z79.899 Other long term (current) drug therapy
CPT/HCPCS: 71045; 80048; 80053; 81001; 81002; 82962; 83880; 84484; 85025; 85379; 86140; 87040; 93005; 93306; 99291; J1644; J1815; J2405; J7030; 36415-L1; 36415-TC